=== PATIENT | female | born 1995 | race Caucasian/White ===

== ENCOUNTER 2017-11-27 03:26 | Emergency (ER) | payer SELFPAY ==
[~2017-11-27] VITALS: Ht 147.3 cm; Wt 57.7 kg
[2017-11-27 03:54] VITALS: Ht 147.3 cm; Wt 57.7 kg
[2017-11-27 06:01] VITALS: BP 110/70
== END 2017-11-27 06:21 | disposition home or self-care (01) ==
LOC: ED 03:26
DX: J02.9 Acute pharyngitis, unspecified (principal); N39.0 Urinary tract infection, site not specified